=== PATIENT | female | born 2000 | race Caucasian/White ===

== ENCOUNTER 2023-01-26 12:44 | Emergency (ER) | payer OTHER ==
[2023-01-26 13:04] LABS: BASOPHILS # (AUTO) 0.1 10^3/uL (0.0-0.1); BASOPHILS % (AUTO) 0.8 %; EOSINOPHILS # (AUTO) 0.1 10^3/uL (0.0-0.7); EOSINOPHILS % (AUTO) 1.6 %; HCT - HEMATOCRIT 38.7 % (37.0-47.0); HGB - HEMOGLOBIN 12.9 g/dL (12.0-16.0); LYMPHOCYTES # (AUTO) 2.3 10^3/uL (1.5-3.5); LYMPHOCYTES % (AUTO) 35.7 %; MEAN CORPUSCULAR HEMOGLOBIN 30.3 pg (27.0-31.0); MEAN CORPUSCULAR HGB CONC 33.3 g/dL (32.0-36.0); MEAN CORPUSCULAR VOLUME 90.8 fL (81.0-99.0); MEAN PLATELET VOLUME 9.8 fL (7.9-10.8); MONOCYTES # (AUTO) 0.5 10^3/uL (0.0-1.0); MONOCYTES % (AUTO) 8.2 %; NEUTROPHILS # (AUTO) 3.5 10^3/uL (1.5-6.6); NEUTROPHILS % (AUTO) 53.5 %; PLT - PLATELET COUNT 326 10^3/uL (130-450); RED BLOOD COUNT 4.26 10^6/uL (4.20-5.40); RED CELL DISTRIBUTION WIDTH 11.9 % (12.0-15.0); WHITE BLOOD COUNT 6.5 x10^3/uL (4.8-10.8)
--- NOTE | 2023-01-26 13:29 | ED Physician Documentation ---
PD HPI ABD PAIN - Stated complaint Stated Complaint: CRAMPS,ABD PX - Chief complaint Chief Complaint: Abd Pain - History obtained from History obtained from: Patient - Additional information Additional information: Otherwise healthy 22-year-old woman presents for evaluation of menstrual cramps. The last 3 months she has had more significant menstrual cramps than usual. They are associated with her menses and she is pain-free between menses but this time, she is currently on her menses, the cramps started a couple of days before her menses started. She is otherwise been regular without change in her what she describes moderate flow. No history of abdominal or pelvic surgeries. Never been . PD PAST MEDICAL HISTORY - Present Medications Home Medications: Ambulatory Orders Medication Instructions Recorded Confirmed No Known Home Medications 01/26/23 01/26/23 - Allergies Allergies/Adverse Reactions: Allergies Allergy/AdvReac Type Severity Reaction Status Date / Time No Known Drug Allergies Allergy Verified 01/26/23 12:51 PD ED PE NORMAL - Vitals Vital signs reviewed: Yes - General General: Alert and oriented X 3, No acute distress - Abdomen Abdomen: Normal bowel sounds, Soft, Other (Minimal pelvic tenderness on exam, no surgical signs.) - Neuro Neuro: Alert and oriented X 3, Normal speech Results - Vitals Vitals: Vital Signs - 24 hr 01/26/23 12:49 Temperature 36.2 C L Heart Rate 76 Respiratory 20 Rate Blood Pressure 118/83 H O2 Saturation 99 - Labs Labs: Laboratory Tests 01/26/23 01/26/23 01/26/23 12:58 12:58 13:28 WBC 6.5 RBC 4.26 Hgb 12.9 Hct 38.7 MCV 90.8 MCH 30.3 MCHC 33.3 RDW 11.9 L Plt Count 326 MPV 9.8 Neut # (Auto) 3.5 Lymph # (Auto) 2.3 [place] # (Auto) 0.5 Eos # (Auto) 0.1 Baso # (Auto) 0.1 Absolute Nucleated RBC 0.00 Nucleated RBC % 0.0 Sodium 137 Potassium 4.0 Chloride 103 Carbon Dioxide 30 Anion Gap 4.0 L BUN 10 Creatinine 0.7 Estimated GFR (MDRD) 106 Glucose 100 Calcium 9.4 Total Bilirubin 0.4 AST 12 ALT 9 L Alkaline Phosphatase 46 Total Protein 7.7 Albumin 4.3 Globulin 3.4 Albumin/Globulin Ratio 1.3 Lipase 31 Urine Color YELLOW Urine Clarity SL. CLOUDY Urine pH 7.0 Ur Specific [place] 1.020 Urine Protein NEGATIVE Urine Glucose (UA) NEGATIVE Urine Ketones NEGATIVE Urine Occult Blood LARGE H Urine Nitrite NEGATIVE Urine Bilirubin NEGATIVE Urine Urobilinogen 0.2 (NORMAL) Ur Leukocyte Esterase NEGATIVE Urine RBC 11-25 H Urine WBC 4-5 Ur Squamous Epith Cells MOD Squamous H Amorphous Sediment Moderate Urine Bacteria Few Ur Microscopic Review INDICATED Urine Culture Comments NOT INDICATED Urine HCG, Qual NEGATIVE PD Medical Decision Making - ED course Complexity details: reviewed results (Urinalysis with some blood in it, likely from her menses. Urine test negative. CBC and CMP grossly normal.) ED course: 22-year-old woman with painful cramps during her menses. Flow is normal. She is not using control and we discussed potentially trying that but she did not want to. Ibuprofen has been helpful. Diagnostic work-up including test and ultrasound was negative/normal here. Departure - Departure Disposition: 01 Home, Self Care Clinical Impression: Menstrual cramps Condition: Good Record reviewed to determine appropriate education?: Yes Instructions: ED Pelvic Pain [facility] Comments: Ultrasound is normal as is your lab work and a negative test. You can take ibuprofen, 400 or 600 mg every 6 hours for pain while you are on your menses. Reasonable to follow-up for further evaluation and [place] Return for new or worsening symptoms. Forms: PCP List
[2023-01-26 13:42] LABS: BILIRUBIN,URINE NEGATIVE (NEGATIVE); GLUCOSE, URINE (UA) NEGATIVE (NEGATIVE); KETONES,URINE (UA) NEGATIVE (NEGATIVE); LEUKOCYTE ESTERASE, URINE NEGATIVE (NEGATIVE); NITRITE,URINE NEGATIVE (NEGATIVE); OCCULT BLOOD,URINE LARGE (NEGATIVE); PROTEIN,URINE NEGATIVE (NEGATIVE); UROBILINOGEN,URINE 0.2 (NORMAL) E.U./dL (NORMAL)
[2023-01-26 13:44] LABS: CLARITY,URINE SL. CLOUDY (CLEAR); HCG UR QUAL NEGATIVE
[2023-01-26 14:00] LABS: ALBUMIN 4.3 g/dL (3.2-5.5); ALBUMIN/GLOBULIN RATIO 1.3 (1.0-2.2); BILIRUBIN,TOTAL 0.4 mg/dL (0.2-1.0); CALCIUM 9.4 mg/dL (8.5-10.3); CREATININE 0.7 mg/dL (0.6-1.3); TOTAL PROTEIN 7.7 g/dL (6.4-8.9)
[2023-01-26 14:01] LABS: AMORPHOUS SEDIMENT,UR Moderate /LPF; BACTERIA,URINE Few /HPF (None Seen); SQUAMOUS EPITHELIAL CELL,UR MOD Squamous (<= Few)
[2023-01-26 15:06] VITALS: BP 108/67; O2SAT 100
--- NOTE | 2023-01-26 15:58 | Ultrasound Report ---
PROCEDURE: Pelvic w/Transvag+Doppler Comp INDICATIONS: pelvic pain TECHNIQUE: Real-time scanning was performed of the pelvic organs, with image documentation. Additional endovagi nal scanning was necessary due to incomplete visualization of the adnexal and endometrial structures by transabdominal scanning. Doppler interrogation was performed of the ovaries bilaterally. COMPARISON: None. FINDINGS: Uterus: Uterus is anteverted and normal in size at 8.1 x 4.2 x 4.8 cm. The myometrium is homogeneou s. The endometrium measures 11 mm in combined thickness. Ovaries: The right ovary measures 3.0 x 2.1 x 2.4 cm, with a calculated ovarian volume of 8.2 cc. T he left ovary measures 2.1 x 1.6 x 3.2 cm, with a calculated ovarian volume of 5.7 cc. Appropriate b lood flow to the ovaries with Doppler interrogation. Less than 12 follicles can be seen in each ova ry. No adnexal masses are seen. No cystic lesions measuring greater than 3 cm. Other: No pathologic free abdominal or pelvic fluid. IMPRESSION: No sonographic signs of ovarian torsion. No acute abnormality. Reviewed by: Brian Jackson MD on 01/26/2023 3:57 PM PDT Approved by: Brian Jackson MD on 01/26/2023 3:57 PM PDT Station ID: [id number]
== END 2023-01-26 15:02 | disposition home or self-care (01) ==
LOC: ED 12:44
DX: R10.9 Unspecified abdominal pain (principal)
CPT/HCPCS: 36415; 80053; 81001; 81003; 81025; 83690; 85025; 87086; 93975; 99283; 99284